=== PATIENT | female | born 1970 | race Caucasian/White ===

== ENCOUNTER → 2016-11-27 | Emergency (ER) | payer MEDICAID ==
[~2016-11-27] VITALS: Ht 134.6 cm; Wt 65.0 kg
[~2016-11-27] MED LIST: ACET500C5 PO; PRENAT PO
[2016-11-27 23:42] VITALS: Ht 134.6 cm; Wt 65.0 kg
--- NOTE | 2016-11-28 02:08 | ERA ---
ER Documentation Chief Complaint Date/Time DATE: 11/28/16 TIME: 02:08 Chief Complaint vaginal bleeding x 2 hours, states 7 weeks HPI The patient is a 44-year-old female, presenting to the ER because of vaginal spotting that began about 2 hours prior to arrival. She is supposed to be 7 weeks , denies syncope, near syncope, neck pain, chest pain, dyspnea, abdominal pain, vomiting, dysuria. She does not smoke nor drink, 3 para 1 1 Past medical history: None Past surgical history: One ROS All systems reviewed and are negative except as per history of present illness. Allergies Allergies: Coded Allergies: No Known Drug Allergies (Verified Allergy, Unknown, 11/27/16) Physical Exam Vitals Vital Signs Date Time Temp Pulse Resp B/P Pulse Ox O2 Delivery O2 Flow Rate FiO2 11/27/16 23:42 99.1 84 20 164/97 100 Physical Exam Const: No acute distress. Head: Atraumatic. Eyes: Normal Conjunctiva. ENT: Normal External Ears, Nose and Mouth. Neck: Full range of motion. No meningismus. Resp: Clear to auscultation bilaterally. Cardio: Regular rate and rhythm. Abd: Soft, non distended, normal bowel sounds, minimal suprapubic tenderness, no rigidity, rebound, CVA tenderness Skin: No petechiae or rashes. Back: No midline or flank tenderness. Ext: No cyanosis, or edema. Neur: Awake and alert. No focal deficit Psych: Normal Mood and Affect. Result Diagram: 11/28/16 0230 Results 24 hrs Laboratory Tests Test 11/28/16 02:24 11/28/16 02:30 Urine Color STRAW Urine Clarity CLEAR Urine pH 6.0 Urine Specific Bowlegs 1.003 Urine Ketones NEGATIVEmg/dL Urine Nitrite NEGATIVEmg/dL Urine Bilirubin NEGATIVEmg/dL Urine Urobilinogen NEGATIVEmg/dL Urine Leukocyte Esterase NEGATIVELeu/ul Urine Microscopic RBC 2/HPF Urine Microscopic WBC 1/HPF Urine Squamous Epithelial Cells FEW/HPF Urine Hemoglobin 3+mg/dL Urine Glucose NEGATIVEmg/dL Urine Total Protein NEGATIVEmg/dl White Blood Count 8.710^3/ul Red Blood Count 4.6110^6/ul Hemoglobin 13.8g/dl Hematocrit 41.8% Mean Corpuscular Volume 90.7fl Mean Corpuscular Hemoglobin 29.9pg Mean Corpuscular Hemoglobin Concent 33.0g/dl Red Cell Distribution Width 13.9% Platelet Count 86487^3/UL Mean Platelet Volume 11.4fl Neutrophils % 40.2% Lymphocytes % 49.9% Monocytes % 7.2% Eosinophils % 2.2% Basophils % 0.3% Nucleated Red Blood Cells % 0.0/100WBC Neutrophils # 3.510^3/ul Lymphocytes # 4.310^3/ul Monocytes # 0.610^3/ul Eosinophils # 0.210^3/ul Basophils # 0.010^3/ul Nucleated Red Blood Cells # 0.010^3/ul Beta HCG, Quantitative 1060.9mIU/ml Procedures/[place] [id number] Rad[facility] Main Line: [phone] DIAGNOSTIC IMAGING REPORT Patient: KENNY MCCARTY : 1970 Age: 45 Sex: F MR #: [id number] DOS: 11/28/16 0209 Ordering MD: TEA GUARDADO MD Location: FT Room/Bed: PROCEDURE: US OB. CLINICAL INDICATION: . Vaginal bleeding. TECHNIQUE: Multiple sonographic images of the pelvis were obtained. Transabdominal and transvaginal views of the pelvis are available for review. The images were reviewed on a PACS workstation. COMPARISON: No prior studies are available for comparison. FINDINGS: An intrauterine probable early gestational sac at 5 mm is identified, corresponding to 5 weeks size.. No pole or cardiac activity is detected. Endometrium is slightly heterogeneous. No subchorionic hemorrhage is identified. There is a 1.7 cm complex right ovarian probable corpus luteum cyst. Ovaries are otherwise normal appearance with color Doppler flow. There is no adnexal mass or free fluid. IMPRESSION: Intrauterine sac-like structure at 5 weeks size without pole or heart motion, likely represents an early intrauterine too small to identify a pole. No adnexal mass or free fluid to suggest ectopic although this cannot be excluded. Recommend continued follow up and correlation with quantitative beta HCG.. Right ovarian probable corpus luteum cyst. No free fluid. RPTAT: HMVK .Tea Weston MD, Date Time Electronically viewed and signed by .Tea Weston MD, on 11/28/2016 03:05 .K/ CC: TEA GUARDADO MD MEDICAL MAKING DECISION: The patient is a 44-year-old female, presenting with acute vaginal bleeding, most likely acute threatened The differential diagnoses considered include but are not limited to threatened/ incomplete/inevitable/complete , ectopic , non- related bleeding. Departure Diagnosis: Primary Impression: Vaginal bleeding in patient at less than 20 weeks gestation Condition: Good Comments I discussed the findings with the patient. 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 The patient's blood pressure was elevated (>120/80) but appears stable without evidence of hypertension emergency or urgency. The patient was counseled about the risks of hypertension and urged to pursue outpatient monitoring and therapy within a week with their primary care physician. TEA GUARDADO MD Nov 28, 2016 02:08
--- NOTE | 2016-11-28 03:06 | RADRPT ---
PROCEDURE: US OB. CLINICAL INDICATION: . Vaginal bleeding. TECHNIQUE: Multiple sonographic images of the pelvis were obtained. Transabdominal and transvagin al views of the pelvis are available for review. The images were reviewed on a PACS workstation. COMPARISON: No prior studies are available for comparison. FINDINGS: An intrauterine probable early gestational sac at 5 mm is identified, corresponding to 5 weeks size. . No pole or cardiac activity is detected. Endometrium is slightly heterogeneous. No subcho rionic hemorrhage is identified. There is a 1.7 cm complex right ovarian probable corpus luteum cyst . Ovaries are otherwise normal appearance with color Doppler flow. There is no adnexal mass or fr ee fluid. IMPRESSION: Intrauterine sac-like structure at 5 weeks size without pole or heart motion, likely represent s an early intrauterine too small to identify a pole. No adnexal mass or free fluid to suggest ectopic although this cannot be excluded. Recommend continued follow up and c orrelation with quantitative beta HCG.. Right ovarian probable corpus luteum cyst. No free fluid. RPTAT: HMVK .Hood Weston MD, Date Time Electronically viewed and signed by .Hood Weston MD, on 11/28/2016 03:05 .K/
[2016-11-28 03:55] LABS: ADD UMIC YES; UR ASCORBIC ACID NEGATIVE (NEGATIVE); UR BILIRUBIN (Dip) NEGATIVE (NEGATIVE); UR BLOOD (Dip) 3+ mg/dL (NEGATIVE); UR CLARITY CLEAR (CLEAR); UR COLOR STRAW (YELLOW); UR GLUCOSE (Dip) NEGATIVE (NEGATIVE); UR KETONES (Dip) NEGATIVE (NEGATIVE); UR LEUKOCYTE ESTERASE (Dip) NEGATIVE Leu/ul (NEGATIVE); UR NITRITE (Dip) NEGATIVE (NEGATIVE); UR RBC 2 /HPF (0-5); UR SPECIFIC GRAVITY (Dip) 1.003 (1.003-1.030); UR SQUAMOUS EPITHELIAL CELL FEW /HPF (FEW); UR TOTAL PROTEIN (Dip) NEGATIVE (NEGATIVE); UR UROBILINOGEN (Dip) NEGATIVE (NEGATIVE)
[2016-11-28 04:09] LABS: BASOPHILS % 0.3 % (0.0-2.0); EOSINOPHILS # 0.2 10^3/ul (0.0-0.5); EOSINOPHILS % 2.2 % (0.0-7.0); HEMATOCRIT 41.8 % (37.0-47.0); HEMOGLOBIN 13.8 g/dl (12.0-16.0); LYMPHOCYTES # 4.3 10^3/ul (0.8-2.9); LYMPHOCYTES % 49.9 % (15.0-51.0); MEAN CORPUSCULAR HEMOGLOBIN 29.9 pg (29.0-33.0); MEAN CORPUSCULAR VOLUME 90.7 fl (82.0-101.0); MEAN PLATELET VOLUME 11.4 fl (7.4-10.4); MONOCYTE # 0.6 10^3/ul (0.3-0.9); MONOCYTES % 7.2 % (0.0-11.0); NEUTROPHIL # 3.5 10^3/ul (1.6-7.5); NEUTROPHILS % 40.2 % (39.0-77.0); PLATELET COUNT 279 10^3/UL (140-415); RED BLOOD COUNT 4.61 10^6/ul (4.20-5.40); RED CELL DISTRIBUTION WIDTH 13.9 % (11.5-14.5); WHITE BLOOD COUNT 8.7 10^3/ul (4.8-10.8)
[2016-11-28 04:13] LABS: ADD SCAN DIFF NO
[2016-11-28 04:43] VITALS: BP 150/90; PULSE 82; RESP 20; TEMP 99.1
== END | disposition home or self-care (01) ==
LOC: FTE 23:37
DX: O20.9 Hemorrhage in early pregnancy, unspecified (principal); Z3A.01 Less than 8 weeks gestation of pregnancy
CPT/HCPCS: 36415; Z7502; 76801; 76817; 81001; 84702; 85025; 86900; 86901

== ENCOUNTER 2016-11-29 02:20 | Emergency (ER) | payer MEDICAID ==
[~2016-11-29] VITALS: Ht 149.9 cm; Wt 66.0 kg
[2016-11-29 02:27] VITALS: Ht 149.9 cm; Wt 66.0 kg
[2016-11-29] MEDS ORDERED: PRENAT PO (03:34)
--- NOTE | 2016-11-29 03:36 | ERD ---
ER Documentation Chief Complaint Date/Time DATE: 11/29/16 TIME: 03:29 Chief Complaint vag bleed w/ pain since fri. had US done states baby was fine. 6 weeks HPI 45-year-old female presents here in emergency department for complaint of worsening vaginal bleeding, patient was seen here yesterday, was only spotting, tonight, started to be bleeding heavily. Patient is passing. Patient complaining also more severe pain mild throbbing pain, 6/10 scale, accompanying vaginal bleeding. Patient is supposed to be 5 weeks , 3 para 1 1. LMP 10/07/2016. Patient denies any fever or chills. Patient denies any flank pain. ROS All systems reviewed and are negative except as per history of present illness. Medications Home Meds Active Scripts Acetaminophen* (Tylophen*) 500 Mg Capsule, 1 CAP PO Q6H Y for PAIN AND OR ELEVATED TEMP, #20 CAP Prov:EDDIE JACQUES TOOL PLANER SET UP OPERATOR 11/29/16 Reported Medications Multivit/Min/Fol Ac/Iron/Pren* ( S*) Unknown Strength Tab, PO DAILY, TAB 11/29/16 Allergies Allergies: Coded Allergies: No Known Drug Allergies (Verified Allergy, Unknown, 11/29/16) PMhx/Soc Medical and Surgical Hx: pt denies Medical Hx History of Surgery: Yes (C SECTION X'S 1) Anesthesia Reaction: No Hx Neurological Disorder: No Hx Respiratory Disorders: No Hx Cardiac Disorders: No Hx Psychiatric Problems: No Hx Miscellaneous Medical Probl: No Hx Alcohol Use: No Hx Substance Use: No Hx Tobacco Use: No FmHx Family History: diabetes Physical Exam Vitals Vital Signs Date Time Temp Pulse Resp B/P Pulse Ox O2 Delivery O2 Flow Rate FiO2 11/29/16 02:27 98.8 87 20 140/94 96 Physical Exam GENERAL: The patient is well developed and appropriate for usual state of health, in no apparent distress. CHEST: Clear to auscultation bilaterally. There are no rales, wheezes or rhonchi. HEART: Regular rate and rhythm. No murmurs, clicks, rubs or gallops. No S3 or S4. ABDOMEN: Soft, nontender and nondistended. Good bowel sounds. No rebound or guarding. No gross peritonitis. No gross organomegaly or masses. No Brunner sign or McBurney point tenderness. BACK: No midline or flank tenderness. EXTREMITIES: Equal pulses bilaterally. There is no peripheral clubbing, cyanosis or edema. No focal swelling or erythema. Full range of motion. Grossly neurovascularly intact. NEURO: Alert and oriented. Cranial nerves 2-12 intact. Motor strength in all 4 extremities with 5/5 strength. Sensation grossly intact. Normal speech and gait. SKIN: There is no apparent rash or petechia. The skin is warm and dry. HEMATOLOGIC AND LYMPHATIC: There is no evidence of excessive bruising or lymphedema. No gross cervical, axillary, or inguinal lymphadenopathy. VAGINAL: Moderate amount of blood in the vaginal vault, cervical os is closed. No cervical motion tenderness or adnexal tenderness noted. Result Diagram: 11/29/16 0326 Results 24 hrs Laboratory Tests Test 11/29/16 03:26 White Blood Count 8.910^3/ul Red Blood Count 4.4710^6/ul Hemoglobin 13.5g/dl Hematocrit 40.7% Mean Corpuscular Volume 91.1fl Mean Corpuscular Hemoglobin 30.2pg Mean Corpuscular Hemoglobin Concent 33.2g/dl Red Cell Distribution Width 13.5% Platelet Count 52418^3/UL Mean Platelet Volume 10.9fl Neutrophils % 47.3% Lymphocytes % 40.7% Monocytes % 9.4% Eosinophils % 2.0% Basophils % 0.2% Nucleated Red Blood Cells % 0.0/100WBC Neutrophils # 4.210^3/ul Lymphocytes # 3.610^3/ul Monocytes # 0.810^3/ul Eosinophils # 0.210^3/ul Basophils # 0.010^3/ul Nucleated Red Blood Cells # 0.010^3/ul Beta HCG, Quantitative 660.6mIU/ml Current Medications Medications (Trade) Dose Ordered Sig/Andrei Route PRN Reason Start Time Stop Time Status Last Admin Dose Admin Acetaminophen (Tylenol Tab) 500 mg ONCE STAT PO 11/29/16 04:31 11/29/16 04:32 DC Patient was given medication for pain here in emergency department, after treatment, patient verbalized feeling much better. Patient's pain is improved. PROCEDURE: Obstetrical ultrasound. CLINICAL INDICATION: Vaginal bleeding. TECHNIQUE: Multiple sonographic images of the pelvis were obtained with transabdominal and endovaginal technique. Images were obtained with erickson scale and color Doppler. COMPARISON: 11/28/2016. FINDINGS: There is an intrauterine gestational sac with no pole or yolk sac identified. The mean sac diameter averages 0.44 cm, compatible with 5 weeks and 0 days gestation. No subchorionic collection is identified. There is no pelvic free fluid. The right ovary measures 3.2 x 1.7 x 2.5 cm and the left ovary measures 2.5 x 1.6 x 1.8 cm. There is normal flow to both ovaries. There is a corpus luteum cyst within the right ovary measuring 1.9 cm. There is no suspicious adnexal mass identified. IMPRESSION: Intrauterine gestational sac with no pole or yolk sac identified, compatible with 5 weeks and 0 days. Short-term follow-up ultrasound is recommended. Right ovarian 1.9 cm corpus luteum cyst. .Abdifatah Love MD, MD Date Time Electronically viewed and signed by .Abdifatah Love MD, MD on 11/29/2016 04:20 .T/ CC: EDDIE JACQUES TOOL PLANER SET UP OPERATOR Procedures/MDM Medical Decision Making: Patients vaginal bleeding is most likely consistent of possible threatened . Patient does not show any evidence of hypovolemic shock. Patients hemoglobin and hematocrit is stable. There is low suspicion for ectopic . KIRSTIE results show 5 week without any pole or yolk sac BetaHCG Quantitative is within yesterday consistent with possible early failed The patient is Rh+, does not need RhoGAM this time. There is no signs of symptoms of dehydration. There is low suspicion for sepsis. Patient appears well and is hemodynamically stable. Disposition: Home. Condition: Stable Prescription: Tylenol Instructions: Patient is advised to do bed rest, avoid heavy lifting, and avoid having sex until cleared by OB doctor. Patient is advised to follow up with OB doctor or here at the ER in 48 hours for reevaluation of symptoms, repeat beta HCG quantitative and ultrasound. Patient is advised that is symptoms are worst, severe bleeding, dizziness, severe abdominal pain, fever, worst signs and symptoms to return to the emergency department immediately. Departure Diagnosis: Primary Impression: Threatened Condition: Stable Patient Instructions: Possible Miscarriage (Threatened ) Additional Instructions: : Patient is advised to do bed rest, avoid heavy lifting, and avoid having sex until cleared by OB doctor. Patient is advised to follow up with OB doctor or here at the ER in 48 hours for reevaluation of symptoms, repeat beta HCG quantitative and ultrasound. Patient is advised that is symptoms are worst, severe bleeding, dizziness, severe abdominal pain, fever, worst signs and symptoms to return to the emergency department immediately. EDDIE JACQUES NP Nov 29, 2016 03:36
[2016-11-29 03:41] LABS: BASOPHILS % 0.2 % (0.0-2.0); EOSINOPHILS # 0.2 10^3/ul (0.0-0.5); HEMATOCRIT 40.7 % (37.0-47.0); HEMOGLOBIN 13.5 g/dl (12.0-16.0); LYMPHOCYTES # 3.6 10^3/ul (0.8-2.9); LYMPHOCYTES % 40.7 % (15.0-51.0); MEAN CORPUSCULAR HEMOGLOBIN 30.2 pg (29.0-33.0); MEAN CORPUSCULAR HGB CONC 33.2 g/dl (32.0-37.0); MEAN CORPUSCULAR VOLUME 91.1 fl (82.0-101.0); MEAN PLATELET VOLUME 10.9 fl (7.4-10.4); MONOCYTE # 0.8 10^3/ul (0.3-0.9); MONOCYTES % 9.4 % (0.0-11.0); NEUTROPHIL # 4.2 10^3/ul (1.6-7.5); NEUTROPHILS % 47.3 % (39.0-77.0); PLATELET COUNT 266 10^3/UL (140-415); RED BLOOD COUNT 4.47 10^6/ul (4.20-5.40); RED CELL DISTRIBUTION WIDTH 13.5 % (11.5-14.5); WHITE BLOOD COUNT 8.9 10^3/ul (4.8-10.8)
--- NOTE | 2016-11-29 04:20 | RADRPT ---
PROCEDURE: Obstetrical ultrasound. CLINICAL INDICATION: Vaginal bleeding. TECHNIQUE: Multiple sonographic images of the pelvis were obtained with transabdominal and endova ginal technique. Images were obtained with erickson scale and color Doppler. COMPARISON: 11/28/2016. FINDINGS: There is an intrauterine gestational sac with no pole or yolk sac identified. The mean sac di ameter averages 0.44 cm, compatible with 5 weeks and 0 days gestation. No subchorionic collection i s identified. There is no pelvic free fluid. The right ovary measures 3.2 x 1.7 x 2.5 cm and the left ovary measu res 2.5 x 1.6 x 1.8 cm. There is normal flow to both ovaries. There is a corpus luteum cyst within the right ovary measuring 1.9 cm. There is no suspicious adnexal mass identified. IMPRESSION: Intrauterine gestational sac with no pole or yolk sac identified, compatible with 5 weeks and 0 days. Short-term follow-up ultrasound is recommended. Right ovarian 1.9 cm corpus luteum cyst. .Abdifatah Love MD, MD Date Time Electronically viewed and signed by .Abdifatah Love MD, MD on 11/29/2016 04:20 .T/
[2016-11-29] MEDS ORDERED: ACETAMINOPHEN 500 MG TAB PO STA (04:31)
[2016-11-29] MEDS ORDERED: ACET500C5 PO (04:33)
[2016-11-29 04:51] LABS: ADD SCAN DIFF NO
== END 2016-11-29 04:40 | disposition home or self-care (01) ==
LOC: FTE 02:20
DX: O20.0 Threatened abortion (principal); Z3A.01 Less than 8 weeks gestation of pregnancy
CPT/HCPCS: 76801; 76817; 84702; 85025; Z7610; 36415